=== PATIENT | male | born 1990 | race African-American/Black ===

== ENCOUNTER 2024-10-10 09:34 | Emergency (ER) | payer SELFPAY ==
--- NOTE | 2024-10-10 11:31 | RAD REPORT ---
EXAMINATION: XR Foot Left 3 View CLINICAL INDICATION: Male, 34 years old. [facility] MAIN swelling/pain to left great toe Bed Name: 20 TECHNIQUE: 3 view radiographs of the left foot were obtained. COMPARISON: No prior exam. FINDINGS: No evidence of fracture or dislocation. Normal alignment. Mild osseous remodeling at the fi rst metatarsophalangeal articulation. Bone lesion. Soft tissues are unremarkable. No soft tissue swelling. No significant degenerative changes. IMPRESSION: No acute osseous abnormalities. Mild osseous remodeling, may represent early osteoarthritic changes a t the first metatarsophalangeal articulation.
--- NOTE | 2024-10-10 11:43 | EDPHYS ---
Physician Documentation [facility] Name: Toby Espitia Age: 34 yrs Sex: Male : 1990 Arrival Date: 10/10/2024 Time: 09:34 Bed 20 Private MD: ED Physician Jabari Gonzalez HPI: 10/10 10:39 This 34 yrs old Black Male presents to ER via Ambulatory with complaints of Toe Injury. rn 10:39 The patient presents with an injury, pain. The complaints affect the left foot. Onset: rn The symptoms/episode began/occurred 3 day(s) ago. Modifying factors: The symptoms are alleviated by Changing shoes the symptoms are aggravated by weight bearing, wearing shoes. Severity of symptoms: At their worst the symptoms were mild, in the emergency department the symptoms are unchanged. The patient has not experienced similar symptoms in the past. Patient reports recently switched to new steel toed boots, has been working 12-hour shifts and feels like his left great toe has been putting pressure against the toe. Feels better when he slides his foot back in his shoe and when he changes out of his shoes. Yesterday noticed bruising to the distal left toe.. Historical: - Allergies: 10:12 Morphine; ss - PMHx: 10:12 Diabetes mellitus; ss - PSHx: 10:12 L leg; ss - Immunization history:: Client reports having NOT received the Covid vaccine. - Infectious Disease History:: Denies. - Social history:: Smoking status: Patient denies any tobacco usage or history of. - Family history:: not pertinent. - Hospitalizations: : No recent hospitalization is reported. ROS: 10:57 MS/extremity: Positive for ecchymosis, pain, swelling, rn Exam: 10:57 Constitutional: This is a well developed, well nourished patient who is awake, alert, rn and in no acute distress. Cardiovascular: Regular rate and rhythm. No pulse deficits. MS/ Extremity: Pulses equal, no cyanosis. Neurovascular intact. Full, normal range of motion. Mild swelling of the distal half of the left great toe with ecchymosis. No evidence of fluctuance or paronychia. No purulence. No open wounds. No foul smell. No signs of gangrene. Vital Signs: 10:09 BP 145 / 87; Pulse 82; Resp 16; Temp 98.6; Pulse Ox 99% on R/A; Weight 108.86 kg; ss Height 6 ft. 0 in. ; Pain 0/10; 12:22 BP 138 / 78; Pulse 80; Resp 15; Pulse Ox 98% ; ko1 10:09 Body Mass Index 32.55 (108.86 kg, 182.88 cm) ss 10:09 Pain Scale: Adult ss MDM: 09:51 Medical Screening Exam initiated rn 11:41 Differential diagnosis: fracture, sprain, cellulitis, Swelling secondary to steel toed rn boots. Data reviewed: vital signs, nurses notes, radiologic studies, plain films, and as a result, I will discharge patient. Counseling: I had a detailed discussion with the patient and/or guardian regarding the historical points, exam findings, and any diagnostic results supporting the discharge/admit diagnosis, radiology results, the need for outpatient follow up, to return to the emergency department if symptoms worsen or persist or if there are any questions or concerns that arise at home. Special discussion: I discussed with the patient/guardian in detail that at this point there is no indication for admission to the hospital. It is understood, however, that if the symptoms persist or worsen the patient needs to return immediately for re-evaluation. Based on the history and exam findings, there is no indication for further emergent testing or inpatient evaluation. I discussed with the patient/guardian the need to see the collection specialist for further evaluation of the symptoms. 10/10 10:40 Order name: XRAY Foot LEFT 3 View; Complete Time: 11:37 rn Administered Medications: No medications were administered Disposition Summary: 10/10/24 11:42 Discharge Ordered Notes: Location: Home rn Problem: new rn Symptoms: have improved rn Condition: Stable rn Diagnosis - Contusion of right great toe without damage to nail, initial encounter rn Followup: rn - With: Private Physician - When: As needed - Reason: Recheck today's complaints, Re-evaluation by your physician Discharge Instructions: - Discharge Summary Sheet rn - Foot Contusion rn Forms: - Medication Reconciliation Form rn - Antibiotic learning disabilities resource teacher - Prescription Opioid Use rn - Patient Portal Instructions rn - Leadership Thank You Letter rn - Work release form ko1 Prescriptions: - Humalog U-100 Insulin 100 unit/mL Subcutaneous solution - inject 1 unit SUBCUTANEOUS route Use as Directed As needed Administer according rn to sliding scale as needed.; 1 packet; Refills: 0, Product Selection Permitted - Bactrim DS 800-160 mg Oral Tablet - take 1 tablet ORAL route every 12 hours for 10 days; 20 tablet; Refills: 0, rn Product Selection Permitted Signatures: Dispatcher [employer] Jabari Garcia MD MD rn Blanchard, Shelby, RN RN ss Corrections: (The following items were deleted from the chart) 10:41 10:41 Foot Left 3 View+RAD.RAD.BRZ ordered. BROCK GUTIÉRREZ
--- NOTE | 2024-10-10 11:43 | ER ---
Nurse's Notes [facility] Name: Toby Espitia Age: 34 yrs Sex: Male : 1990 Arrival Date: 10/10/2024 Time: 09:34 Bed 20 Private MD: Diagnosis: Contusion of right great toe without damage to nail, initial encounter Presentation: 10/10 10:09 Chief complaint: Chief complaint: Patient states: Bruising to L 1st toe that patient ss noticed yesterday. Coronavirus screen: Client denies travel out of the [place] in the last 14 days. Ebola Screen: Patient denies exposure to infectious person. Patient denies travel to an Ebola-affected area in the 21 days before illness onset. Initial Sepsis Screen: Does the patient meet any 2 criteria? No. Patient's initial sepsis screen is negative. Does the patient have a suspected source of infection? No. Patient's initial sepsis screen is negative. Risk Assessment: Do you want to hurt yourself or someone else? Patient reports no desire to harm self or others. Onset of symptoms was October 09, 2024. 10:09 Method Of Arrival: Ambulatory ss 10:09 Acuity: TIFFANY 3 ss Historical: - Allergies: 10:12 Morphine; ss - PMHx: 10:12 Diabetes mellitus; ss - PSHx: 10:12 L leg; ss - Immunization history:: Client reports having NOT received the Covid vaccine. - Infectious Disease History:: Denies. - Social history:: Smoking status: Patient denies any tobacco usage or history of. - Family history:: not pertinent. - Hospitalizations: : No recent hospitalization is reported. Screenin:[address] [facility] ED Fall Risk Assessment (Adult) History of falling in the last 3 months, ko1 including since admission No falls in past 3 months (0 pts) Confusion or Disorientation No (0 pts) Intoxicated or Sedated No (0 pts) Impaired Gait No (0 pts) Mobility Assist Device Used No (0 pt) Altered Elimination No (0 pt) Score/Fall Risk Level 0 - 2 = Low Risk Oriented to surroundings, Maintained a safe environment, Educated pt \T\ family on fall prevention, incl call for assistance when getting out of bed, Assessed \T\ reinforced patient's understanding of fall precautions, Hourly rounding (assess needs \T\ fall precautionary measures) done. Abuse screen: Denies threats or abuse. Denies injuries from another. Nutritional screening: No deficits noted. Tuberculosis screening: No symptoms or risk factors identified. Assessment: 10:29 General: Appears in no apparent distress. Behavior is calm, cooperative, appropriate ko1 for age. Pain: Complains of pain in left great toe. Neuro: No deficits noted. Cardiovascular: No deficits noted. Respiratory: No deficits noted. GI: No deficits noted. No signs and/or symptoms were reported involving the gastrointestinal system. : No deficits noted. No signs and/or symptoms were reported regarding the genitourinary system. EENT: No deficits noted. No signs and/or symptoms were reported regarding the EENT system. Derm: No deficits noted. No signs and/or symptoms reported regarding the dermatologic system. Musculoskeletal: No deficits noted. No signs and/or symptoms reported regarding the musculoskeletal system. Vital Signs: 10:09 BP 145 / 87; Pulse 82; Resp 16; Temp 98.6; Pulse Ox 99% on R/A; Weight 108.86 kg; ss Height 6 ft. 0 in. ; Pain 0/10; 12:22 BP 138 / 78; Pulse 80; Resp 15; Pulse Ox 98% ; ko1 10:09 Body Mass Index 32.55 (108.86 kg, 182.88 cm) ss 10:09 Pain Scale: Adult ss ED Course: 09:39 Patient arrived in ED. sj2 09:51 Jabari Gonzalez MD is Attending Physician. rn 10:12 Triage completed. ss 10:12 Arm band placed on right wrist. ss 10:13 Randee Martins, RN is Primary Nurse. ko1 10:29 Patient has correct armband on for positive identification. Allergy band placed. Bed in ko1 low position. Call light in reach. Side rails up X2. Provided Education on: call light. Pulse ox on. NIBP on. Door closed. Noise minimized. Lights dimmed. Warm blanket given. Pillow given. 10:29 No provider procedures requiring assistance completed. ko1 11:01 XRAY Foot LEFT 3 View In Process Unspecified. EDMS 12:22 Patient did not have IV access during this emergency room visit. ko1 Administered Medications: No medications were administered Medication: :29 VIS not applicable for this client. ko1 Outcome: 11:42 Discharge ordered by . rn 12:22 Discharged to home ambulatory, koGurmeet 12:22 Condition: stable 12:22 Discharge instructions given to patient, Instructed on discharge instructions, follow up and referral plans. medication usage, Demonstrated understanding of instructions, follow-up care, medications, Prescriptions given X 2, 12:37 Patient left the ED. ko1 Signatures: Dispatcher [employer] EDMS Jabari Gonzalez MD MD rn Blanchard, Shelby, RN RN ss Oliver, Kathy, RN RN ko1 Ariela Vega
[2024-10-10 12:41] VITALS: TEMP 98.6
[2024-10-10 12:43] VITALS: BP 138/78; O2SAT 98
== END 2024-10-10 12:37 | disposition home or self-care (01) ==
LOC: ER 09:34
DX: S90.112A Contusion of left great toe without damage to nail, initial encounter (principal)
CPT/HCPCS: 99283

== ENCOUNTER 2024-11-25 05:12 | Emergency (ER) | payer SELFPAY ==
--- NOTE | 2024-11-25 05:26 | EDPHYS ---
Physician Documentation [facility] Name: Toby Espitia Age: 34 yrs Sex: Male : 1990 Arrival Date: 11/25/2024 Time: 05:12 Bed 6 Private MD: ED Physician Andreas Espinoza HPI: 11/25 05:23 This 34 yrs old Black Male presents to ER via Unassigned with complaints of Abscess, sp3 Drainage From Ear, Ear Pain. 05:23 34-year-old male with type 1 diabetes presents with left ear/ear canal abscess that has sp3 "popped" with mild drainage. No other symptoms including fever, dental pain, facial pain or swelling, neck pain, submandibular pain, shortness of breath, chest pain or any other signs or symptoms on ROS at this time. Patient has had this in the past.. Historical: - Allergies: 05:25 Morphine; lg3 05:25 SHELLFISH; lg3 - Home Meds: 05:25 Insulin: Regular Sub-Q [Active]; lg3 - PMHx: 05:25 diabetes mellitus; lg3 - PSHx: 05:25 L leg; lg3 - Immunization history:: Adult Immunizations up to date. - Infectious Disease History:: Denies. - Social history:: Smoking status: Patient denies any tobacco usage or history of. Patient/guardian denies using alcohol, street drugs. ROS: 05:23 Constitutional: Negative for fever, chills, and weight loss, Eyes: Negative for injury, sp3 pain, redness, and discharge, ENT: Negative for injury, pain, and discharge, Neck: Negative for injury, pain, and swelling, Cardiovascular: Negative for chest pain, palpitations, and edema, Respiratory: Negative for shortness of breath, cough, wheezing, and pleuritic chest pain, Abdomen/GI: Negative for abdominal pain, nausea, vomiting, diarrhea, and constipation, Back: Negative for injury and pain, MS/Extremity: Negative for injury and deformity, Neuro: Negative for headache, weakness, numbness, tingling, and seizure, Psych: Negative for depression, anxiety, suicide ideation, homicidal ideation, and hallucinations, 05:23 All other systems are negative, Exam: 05:24 Constitutional: This is a well developed, well nourished patient who is awake, alert, sp3 and in no acute distress. Head/Face: Normocephalic, atraumatic. Eyes: Pupils equal round and reactive to light, extra-ocular motions intact. Lids and lashes normal. Conjunctiva and sclera are non-icteric and not injected. Cornea within normal limits. Periorbital areas with no swelling, redness, or edema. Neck: Trachea midline, no thyromegaly or masses palpated, and no cervical lymphadenopathy. Supple, full range of motion without nuchal rigidity, or vertebral point tenderness. No Meningismus. Chest/axilla: Normal chest wall appearance and motion. Nontender with no deformity. No lesions are appreciated. Cardiovascular: Regular rate and rhythm with a normal S1 and S2. No gallops, murmurs, or rubs. Normal PMI, no JVD. No pulse deficits. Respiratory: Lungs have equal breath sounds bilaterally, clear to auscultation and percussion. No rales, rhonchi or wheezes noted. No increased work of breathing, no retractions or nasal flaring. 05:24 ENT: Draining small abscess in the external auditory canal without TM involvement. No pinna involvement, cauliflower ear or any other abnormalities.. Vital Signs: 05:23 BP 147 / 89; Pulse 71; Resp 16 S; Temp 97.1(O); Pulse Ox 99% on R/A; Weight 111.13 kg lg3 (R); Height 6 ft. 0 in. (R); Pain 0/10; 05:23 Body Mass Index 33.23 (111.13 kg, 182.88 cm) lg3 05:23 Pain Scale: Adult lg3 MDM: 05:17 Medical Screening Exam initiated sp3 05:24 Data reviewed: vital signs, nurses notes. ED course: Abscess in ear canal without other sp3 complication. Will place on Augmentin and have patient follow-up with ENT. Patient states he has had abscess in the same spot in the past. And med/tele suspicious of sepsis, shock, or any other critical process, cartilage or other parts of the ear involvement, middle ear involvement or any other critical process.. Administered Medications: No medications were administered Disposition Summary: 11/25/24 05:26 Discharge Ordered Notes: Location: Home sp3 Condition: Stable sp3 Diagnosis - Cutaneous abscess sp3 Followup: sp3 - With: Chelsi Singer MD - When: Upon discharge from the Emergency Department - Reason: Recheck today's complaints Discharge Instructions: - Discharge Summary Sheet sp3 - Skin Abscess sp3 Forms: - Work release form lg3 - Medication Reconciliation Form sp3 - Antibiotic Education sp3 - Prescription Opioid Use sp3 - Patient Portal Instructions sp3 - Leadership Thank You Letter sp3 Prescriptions: - Augmentin 875-125 mg Oral Tablet - take 1 tablet ORAL route every 12 hours for 10 days; 20 tablet; Refills: 0, sp3 Product Selection Permitted Signatures: Aisha Ferraro RN RN lg3 Andreas Espinoza MD MD sp3
--- NOTE | 2024-11-25 05:26 | ER ---
Nurse's Notes [facility] Name: Toby Espitia Age: 34 yrs Sex: Male : 1990 Arrival Date: 11/25/2024 Time: 05:12 Bed 6 Private MD: Diagnosis: Cutaneous abscess Presentation: 11/25 05:23 Chief complaint: Patient states: bump in left ear X3 months with intermittent drainage. lg3 new drainage this morning. denies pain. Coronavirus screen: Client denies travel out of the [place] in the last 14 days. At this time, the client does not indicate any symptoms associated with coronavirus-19. Ebola Screen: No symptoms or risks identified at this time. Initial Sepsis Screen: Does the patient meet any 2 criteria? No. Patient's initial sepsis screen is negative. Does the patient have a suspected source of infection? No. Patient's initial sepsis screen is negative. Risk Assessment: Do you want to hurt yourself or someone else? Patient reports no desire to harm self or others. Onset of symptoms is unknown. 05:23 Method Of Arrival: Ambulatory lg3 05:23 Acuity: TIFFANY 5 lg3 Triage Assessment: 05:25 General: Appears in no apparent distress. comfortable, Behavior is calm, cooperative. lg3 Pain: Denies pain. EENT: Ear canal w/ drainage noted from left ear. Neuro: No deficits noted. [place] Agitation-Sedation Scale (RASS): 0 - Alert and Calm Level of Consciousness is awake, alert, obeys commands, Oriented to person, place, time, situation. Cardiovascular: No deficits noted. Denies chest pain, shortness of breath, Capillary refill < 3 seconds Clubbing of nail beds is absent JVD is absent Patient's skin is warm and dry. Respiratory: No deficits noted. Airway is patent Respiratory effort is even, unlabored, Respiratory pattern is regular, symmetrical. GI: No deficits noted. No signs and/or symptoms were reported involving the gastrointestinal system. : No signs and/or symptoms were reported regarding the genitourinary system. Derm: Skin is intact, is healthy with good turgor, Skin is dry, Skin is normal, Skin temperature is warm Abscess located on left ear. Musculoskeletal: No deficits noted. No signs and/or symptoms reported regarding the musculoskeletal system. Circulation, motion, and sensation intact. Range of motion: intact in all extremities. Historical: - Allergies: 05:25 Morphine; lg3 05:25 SHELLFISH; lg3 - Home Meds: 05:25 Insulin: Regular Sub-Q [Active]; lg3 - PMHx: 05:25 diabetes mellitus; lg3 - PSHx: 05:25 L leg; lg3 - Immunization history:: Adult Immunizations up to date. - Infectious Disease History:: Denies. - Social history:: Smoking status: Patient denies any tobacco usage or history of. Patient/guardian denies using alcohol, street drugs. Screenin:27 [facility] ED Fall Risk Assessment (Adult) History of falling in the last 3 months, lg3 including since admission No falls in past 3 months (0 pts) Confusion or Disorientation No (0 pts) Intoxicated or Sedated No (0 pts) Impaired Gait No (0 pts) Mobility Assist Device Used No (0 pt) Altered Elimination No (0 pt) Score/Fall Risk Level 0 - 2 = Low Risk Oriented to surroundings, Maintained a safe environment, Educated pt \T\ family on fall prevention, incl call for assistance when getting out of bed, Assessed \T\ reinforced patient's understanding of fall precautions. Abuse screen: Denies threats or abuse. Denies injuries from another. Nutritional screening: No deficits noted. Tuberculosis screening: No symptoms or risk factors identified. Assessment: 05:27 General: see triage assessment. lg3 Vital Signs: 05:23 BP 147 / 89; Pulse 71; Resp 16 S; Temp 97.1(O); Pulse Ox 99% on R/A; Weight 111.13 kg lg3 (R); Height 6 ft. 0 in. (R); Pain 0/10; 05:23 Body Mass Index 33.23 (111.13 kg, 182.88 cm) lg3 05:23 Pain Scale: Adult lg3 ED Course: 05:16 Patient arrived in ED. jj6 05:17 Andreas Espinoza MD is Attending Physician. sp3 05:25 Triage completed. lg3 05:25 Arm band placed on right wrist. lg3 05:26 Chelsi Singer MD is Referral Physician. sp3 05:27 Patient has correct armband on for positive identification. Bed in low position. lg3 05:27 No provider procedures requiring assistance completed. Patient did not have IV access lg3 during this emergency room visit. Administered Medications: No medications were administered Medication: 05:27 VIS not applicable for this client. lg3 Outcome: 05:26 Discharge ordered by . sp3 05:27 Discharged to home ambulatory, lg3 05:27 Condition: stable 05:27 Discharge instructions given to patient, Instructed on discharge instructions, follow up and referral plans. medication usage, Demonstrated understanding of instructions, follow-up care, medications, Prescriptions given X 1, 05:31 Patient left the ED. lg3 Signatures: Aisha Ferraro RN RN lg3 Andreas Espinoza MD MD sp3 Savannah Mendoza [email or web address] Corrections: (The following items were deleted from the chart) 05:25 05:23 Chief complaint: Patient states: bump in left ear with intermittent drainage. new lg3 drainage this morning. denies pain lg3
[2024-11-25 05:37] VITALS: BP 147/89; TEMP 97.1; O2SAT 99
== END 2024-11-25 05:31 | disposition home or self-care (01) ==
LOC: ER 05:12
DX: H60.02 Abscess of left external ear (principal); E11.9 Type 2 diabetes mellitus without complications; Z79.4 Long term (current) use of insulin
CPT/HCPCS: 99283

== ENCOUNTER 2024-12-28 07:27 | Emergency (ER) | payer OTHER, SELFPAY ==
[2024-12-28] MEDS ORDERED: NA CHLORIDE 0.9% 250 ML ONE (08:12)
[2024-12-28] MEDS ORDERED: VANCOMYCIN 1 GM/VIAL ONE (08:12)
[2024-12-28 08:25] LABS: Absolute Basophils 0.1 K/uL (0-0.5); Absolute Eosinophils 0.3 K/uL (0-0.5); Absolute Lymphocytes (CBC) 1.9 K/uL (0.7-4.9); Absolute Monocytes 0.8 K/uL (0.1-1.3); Absolute Neutrophil 6.8 K/uL (1.8-8.0); Basophils % 1.2 % (0-1.3); Eosinophils % 2.8 % (0-4.4); Hematocrit 42.5 % (39.6-49.0); Hemoglobin 14.4 g/dL (13.6-17.9); Lymphocytes % 19.3 % (15.3-44.8); MCH 29.7 pg (27.0-35.0); MCHC 33.8 g/dL (32.0-36.0); MCV 87.6 fL (80-100); MPV 7.8 fL (7.6-11.3); Monocytes % 8.5 % (3.3-12.3); Neutrophils % 68.2 % (41.7-73.7); Nucleated Red Blood Cells % 0.1 % (0-0); Platelets 282 thou/uL (152-406); RBC Red Blood Cell Count 4.85 M/uL (4.33-5.43); Red Cell Distribution Width 13.1 % (12.1-15.2)
[2024-12-28 08:37] LABS: Albumin 4.3 g/dL (3.4-5.0); Albumin/Globulin Ratio 1.2 (1.1-1.8); Anion Gap 8.5 mEq/L (5.0-15.0); Bilirubin Direct 0.2 mg/dL (0-0.2); Bilirubin Indirect, Calculated 0.3 mg/dL (0.2-0.8); Bilirubin Total 0.5 mg/dL (0.2-1.0); Globulin 3.6 g/dL (2.3-3.5); Magnesium 1.8 mg/dL (1.6-2.4); Potassium 3.5 mEq/L (3.5-5.1); Protein, Total 7.9 g/dL (6.4-8.2)
--- NOTE | 2024-12-28 08:45 | RAD REPORT ---
EXAMINATION: XR Foot Left 3 View CLINICAL INDICATION: Male, 34 years old. [facility] MAIN great toe -- assess for osteo Bed Name: 7 TECHNIQUE: 3 view radiographs of the left foot were obtained. COMPARISON: 10/10/2024. FINDINGS: No evidence of fracture or dislocation. Normal alignment. No evidence of arthropathy or oth er focal bone lesion. Soft tissue irregularity along the lateral distal phalanx great toe with swelling, without underlying junction. Mild degenerative changes at the first metatarsophalangeal art iculation and midfoot articulations, stable. IMPRESSION: No acute osseous abnormalities with soft tissue swelling and irregularity along the phalanx great toe . There is persistent clinical concern for osteomyelitis, additional evaluation by MRI with provide improved sensitivity.
--- NOTE | 2024-12-28 09:24 | ER ---
Nurse's Notes [facility] Name: Toby Espitia Age: 34 yrs Sex: Male : 1990 Arrival Date: 12/28/2024 Time: 07:27 Bed 7 Private MD: Diagnosis: Cellulitis, diabetic foot Presentation: 12/28 07:56 Chief complaint: Left great toe wound x months, getting worse. Coronavirus screen: At this time, the client does not indicate any symptoms associated with coronavirus-19. Ebola Screen: No symptoms or risks identified at this time. Initial Sepsis Screen: Does the patient meet any 2 criteria? No. Patient's initial sepsis screen is negative. Does the patient have a suspected source of infection? No. Patient's initial sepsis screen is negative. Risk Assessment: Do you want to hurt yourself or someone else? Patient reports no desire to harm self or others. Onset of symptoms is unknown. 07:56 Method Of Arrival: Ambulatory hb 07:56 Acuity: TIFFANY 3 hb Historical: - Allergies: 07:58 Morphine; hb 07:58 SHELLFISH; hb - Home Meds: 07:58 Insulin: Regular Sub-Q [Active]; hb - PMHx: 07:58 diabetes mellitus; hb - PSHx: 07:58 L leg; hb - Immunization history:: Adult Immunizations up to date. - Infectious Disease History:: Denies. - Social history:: Smoking status: Patient reports the use of cigarette tobacco products, denies chronic smoking, but will smoke occasionally, cigars. Screenin:37 [facility] ED Fall Risk Assessment (Adult) History of falling in the last 3 months, iw including since admission No falls in past 3 months (0 pts) Confusion or Disorientation No (0 pts) Intoxicated or Sedated No (0 pts) Impaired Gait No (0 pts) Mobility Assist Device Used No (0 pt) Altered Elimination No (0 pt) Score/Fall Risk Level 0 - 2 = Low Risk Oriented to surroundings, Maintained a safe environment. Abuse screen: Denies threats or abuse. Denies injuries from another. Nutritional screening: No deficits noted. Tuberculosis screening: No symptoms or risk factors identified. Assessment: 08:36 General: Appears in no apparent distress. Behavior is calm, cooperative. Pain: Denies iw pain. Neuro: Level of Consciousness is awake, alert, obeys commands, Oriented to person, place, time, situation, Moves all extremities. Cardiovascular: Patient's skin is warm and dry. Respiratory: Respiratory effort is even, unlabored, Respiratory pattern is regular. Derm: Wound noted Decubitus located on left great toe approximately is unstageable. eschar present. Musculoskeletal: Range of motion: intact in all extremities. 08:55 Reassessment: Patient appears in no apparent distress at this time. Patient and/or iw family updated on plan of care and expected duration. Pain level reassessed. Patient is alert, oriented x 3, equal unlabored respirations, skin warm/dry/pink. Vital Signs: 07:56 BP 170 / 103; Pulse 109; Resp 17; Temp 98.8(O); Pulse Ox 100% on R/A; Weight 108.86 kg; hb Height 6 ft. 0 in. ; Pain 0/10; 08:55 BP 164 / 92; Pulse 91; Resp 16; Pulse Ox 97% on R/A; Pain 0/10; iw 10:08 BP 158 / 86; Pulse 74; Resp 16; Temp 98; Pulse Ox 100% on R/A; iw 07:56 Body Mass Index 32.55 (108.86 kg, 182.88 cm) hb 07:56 Pain Scale: Adult hb 08:55 Pain Scale: Adult iw ED Course: 07:32 Patient arrived in ED. sj2 07:42 Andreas Espinoza MD is Attending Physician. sp3 07:50 Edson Panchal, RN is Primary Nurse. bp 07:57 Triage completed. hb 07:58 Arm band placed on. hb 08:15 Inserted saline lock: 20 gauge in right antecubital area, using aseptic technique. iw Blood collected. Flushed with 10 mL NS. 08:29 Second set of blood cultures drawn by me. iw 08:35 Inserted saline lock: 22 gauge in left antecubital area, using aseptic technique. Blood iw collected. Flushed with 10 mL NS. 08:37 Foot Left 3 View XRAY In Process Unspecified. EDMS 09:23 Tam Dominguez MD is Referral Physician. sp3 10:08 Patient has correct armband on for positive identification. Provided Education on: . iw 10:08 No provider procedures requiring assistance completed. IV discontinued, intact, iw bleeding controlled, No redness/swelling at site. Pressure dressing applied. Administered Medications: 07:49 CANCELLED (error): ns 0.9% 1000 ml IV at 1000 ml once; to be given as a bolus over 60 sp3 minutes 08:43 Drug: vancoMYCIN IVPB 1 grams IVPB once over 2 hrs Route: IVPB; Infused Over: 2 hrs; iw Site: left antecubital; 09:00 Follow up: IV Status: Completed infusion iw Medication: 10:08 VIS not applicable for this client. iw Outcome: :23 Discharge ordered by MD. mccallum 10:08 Discharged to home ambulatory, iw 10: Condition: good 10:08 Discharge instructions given to patient, Instructed on discharge instructions, follow up and referral plans. medication usage, Demonstrated understanding of instructions, follow-up care, medications, Prescriptions given X 3, 10:09 Patient left the ED. iw Signatures: Dispatcher [employer] EDMakeda Jones RN RN iw Katia Martinez RN RN Edson Panchal RN RN bp Patel, Setul, MD MD sp3 Ariela Vega
--- NOTE | 2024-12-28 09:24 | EDPHYS ---
Physician Documentation [facility] Name: Toby Espitia Age: 34 yrs Sex: Male : 1990 Arrival Date: 12/28/2024 Time: 07:27 Bed 7 Private MD: ED Physician Andreas Espinoza HPI: 12/28 07:56 This 34 yrs old Black Male presents to ER via Unassigned with complaints of Foot sp3 Problem. 07:56 34-year-old male with history of type 1 diabetes on insulin presents with left sp3 foot/great toe pain, swelling and blackened skin. Patient states that he was seen here over a month ago for similar symptoms and received antibiotics and went home where he was getting better but now is getting worse again. He attributes his symptoms to being in steel toed boots. He denies any other symptoms including fever, proximal leg pain, lymphadenopathy, chest pain, shortness of breath or any other signs or symptoms on ROS at this time.. Historical: - Allergies: 07:58 Morphine; hb 07:58 SHELLFISH; hb - Home Meds: 07:58 Insulin: Regular Sub-Q [Active]; hb - PMHx: 07:58 diabetes mellitus; hb - PSHx: 07:58 L leg; hb - Immunization history:: Adult Immunizations up to date. - Infectious Disease History:: Denies. - Social history:: Smoking status: Patient reports the use of cigarette tobacco products, denies chronic smoking, but will smoke occasionally, cigars. ROS: 07:57 Constitutional: Negative for fever, chills, and weight loss, Eyes: Negative for injury, sp3 pain, redness, and discharge, ENT: Negative for injury, pain, and discharge, Neck: Negative for injury, pain, and swelling, Cardiovascular: Negative for chest pain, palpitations, and edema, Respiratory: Negative for shortness of breath, cough, wheezing, and pleuritic chest pain, Abdomen/GI: Negative for abdominal pain, nausea, vomiting, diarrhea, and constipation, Back: Negative for injury and pain, Neuro: Negative for headache, weakness, numbness, tingling, and seizure, Psych: Negative for depression, anxiety, suicide ideation, homicidal ideation, and hallucinations, Allergy/Immunology: Negative for hives, rash, and allergies, Endocrine: Negative for neck swelling, polydipsia, polyuria, polyphagia, and marked weight changes, 07:57 All other systems are negative, Exam: 07:57 Constitutional: This is a well developed, well nourished patient who is awake, alert, sp3 and in no acute distress. Head/Face: Normocephalic, atraumatic. Eyes: Pupils equal round and reactive to light, extra-ocular motions intact. Lids and lashes normal. Conjunctiva and sclera are non-icteric and not injected. Cornea within normal limits. Periorbital areas with no swelling, redness, or edema. Neck: Trachea midline, no thyromegaly or masses palpated, and no cervical lymphadenopathy. Supple, full range of motion without nuchal rigidity, or vertebral point tenderness. No Meningismus. Chest/axilla: Normal chest wall appearance and motion. Nontender with no deformity. No lesions are appreciated. Cardiovascular: Regular rate and rhythm with a normal S1 and S2. No gallops, murmurs, or rubs. Normal PMI, no JVD. No pulse deficits. Respiratory: Lungs have equal breath sounds bilaterally, clear to auscultation and percussion. No rales, rhonchi or wheezes noted. No increased work of breathing, no retractions or nasal flaring. Abdomen/GI: Soft, non-tender, with normal bowel sounds. No distension or tympany. No guarding or rebound. No evidence of tenderness throughout. Neuro: Awake and alert, GCS 15, oriented to person, place, time, and situation. Cranial nerves II-XII grossly intact. Motor strength 5/5 in all extremities. Sensory grossly intact. Cerebellar exam normal. Normal gait. Psych: Awake, alert, with orientation to person, place and time. Behavior, mood, and affect are within normal limits. 07:57 Musculoskeletal/extremity: Left great toe painful and blackened skin coupled with dry skin. Surrounding erythema noted.. Vital Signs: 07:56 BP 170 / 103; Pulse 109; Resp 17; Temp 98.8(O); Pulse Ox 100% on R/A; Weight 108.86 kg; hb Height 6 ft. 0 in. ; Pain 0/10; 08:55 BP 164 / 92; Pulse 91; Resp 16; Pulse Ox 97% on R/A; Pain 0/10; iw 10:08 BP 158 / 86; Pulse 74; Resp 16; Temp 98; Pulse Ox 100% on R/A; iw 07:56 Body Mass Index 32.55 (108.86 kg, 182.88 cm) hb 07:56 Pain Scale: Adult hb 08:55 Pain Scale: Adult iw MDM: 07:51 Medical Screening Exam initiated sp3 07:57 Data reviewed: vital signs, nurses notes, old medical records, lab test result(s), sp3 radiologic studies. ED course: 34-year-old male with type 1 diabetes now with toe pain nontraumatic. Consider cellulitis versus osteomyelitis versus other localized infection. Will obtain x-ray, labs and administer antibiotics. Disposition pending workup and patient course.. 09:22 ED course: No signs of osteo on x-ray and patient's labs are all within normal limits. sp3 Will place on antibiotics and have him follow-up with podiatry.. 12/28 07:48 Order name: Basic Metabolic Panel; Complete Time: 08:52 sp3 12/28 07:48 Order name: CBC with Diff; Complete Time: 08:52 sp3 12/28 07:48 Order name: Hepatic Function; Complete Time: 08:52 sp3 12/28 07:48 Order name: Magnesium; Complete Time: 08:52 sp3 12/28 07:56 Order name: Blood Culture Adult (2) sp3 12/28 07:56 Order name: Foot Left 3 View XRAY; Complete Time: 08:52 sp3 12/28 07:48 Order name: Labs collected and sent; Complete Time: 07:49 sp3 Administered Medications: 07:49 CANCELLED (error): ns 0.9% 1000 ml IV at 1000 ml once; to be given as a bolus over 60 sp3 minutes 08:43 Drug: vancoMYCIN IVPB 1 grams IVPB once over 2 hrs Route: IVPB; Infused Over: 2 hrs; iw Site: left antecubital; 09:00 Follow up: IV Status: Completed infusion iw Disposition Summary: 12/28/24 09:23 Discharge Ordered Notes: Location: Home sp3 Condition: Stable sp3 Diagnosis - Cellulitis, diabetic foot sp3 Followup: sp3 - With: Private Physician - When: Upon discharge from the Emergency Department - Reason: Continuance of care Followup: sp3 - With: Tma Dominguez MD - When: Upon discharge from the Emergency Department - Reason: Recheck today's complaints, Continuance of care Discharge Instructions: - Discharge Summary Sheet sp3 - Cellulitis, Adult sp3 Forms: - Medication Reconciliation Form sp3 - Antibiotic Education sp3 - Prescription Opioid Use sp3 - Patient Portal Instructions sp3 - Leadership Thank You Letter sp3 Prescriptions: - mupirocin 2 % Topical ointment - apply 1 application TOPICAL route 4 times per day; 2 Each; Refills: 0, Product sp3 Selection Permitted - Clindamycin HCl 300 mg Oral Capsule - take 1 capsule ORAL route every 6 hours for 10 days; 40 capsule; Refills: 0, sp3 Product Selection Permitted - Bactrim DS 800-160 mg Oral Tablet - take 1 tablet ORAL route every 12 hours for 7 days; 14 tablet; Refills: 0, sp3 Product Selection Permitted Signatures: Dispatcher [employer] EDMS Makeda Cook RN RN Katia Martinez RN RN Andreas Espinoza MD MD sp3 Corrections: (The following items were deleted from the chart) 07:48 07:48 BASIC METABOLIC PANEL+C.LAB.BRZ ordered. EDMS EDMS 07:48 07:48 CBC+H.LAB.BRZ ordered. EDMS EDMS 07:48 07:48 HEPATIC FUNCTION+C.LAB.BRZ ordered. EDMS EDMS 07:48 07:48 MAGNESIUM+C.LAB.BRZ ordered. EDMS EDMS 07:48 07:48 Test, Urine+UC.LAB.BRZ ordered. EDMS EDMS 07:48 07:48 Urinalysis+U.LAB.BRZ ordered. EDMS EDMS 07:49 07:48 EKG - Nurse/Tech ordered. sp3 sp3 07:49 07:48 IV Saline Lock ordered. sp3 sp3 07:49 07:48 Orthostatics ordered. sp3 sp3 07:49 07:48 NS 0.9% IV 1000 ml IV at 1000 ml once; to be given as a bolus over 60 minutes sp3 ordered. sp3 07:56 07:56 Foot Left 3 View+RAD.RAD.BRZ ordered. EDMS EDMS
[2024-12-28 10:38] VITALS: BP 158/86; TEMP 98; O2SAT 100
== END 2024-12-28 10:09 | disposition home or self-care (01) ==
LOC: ER 07:27
DX: L03.032 Cellulitis of left toe (principal); E10.621 Type 1 diabetes mellitus with foot ulcer; Z79.4 Long term (current) use of insulin; F17.290 Nicotine dependence, other tobacco product, uncomplicated
CPT/HCPCS: 87040 ×2; 85025; 80048; 36415; 83735; 80076; 73630; J3370; J7050; 96365; 99284

== ENCOUNTER 2025-01-30 10:33 | Emergency (ER) | payer OTHER ==
[2025-01-30] MEDS ORDERED: NA CHLORIDE 0.9% 1,000 ML ONE (10:52)
[2025-01-30] MEDS ORDERED: INSULIN REGULAR (HUMAN) 100 UNIT/ML ONE (11:03)
[2025-01-30 11:22] LABS: Absolute Basophils 0.1 K/uL (0-0.5); Absolute Eosinophils 0.2 K/uL (0-0.5); Absolute Lymphocytes (CBC) 1.7 K/uL (0.7-4.9); Absolute Monocytes 0.7 K/uL (0.1-1.3); Absolute Neutrophil 6.2 K/uL (1.8-8.0); Basophils % 0.8 % (0-1.3); Eosinophils % 2.5 % (0-4.4); Hematocrit 41.4 % (39.6-49.0); Hemoglobin 14.4 g/dL (13.6-17.9); Lymphocytes % 19.2 % (15.3-44.8); MCH 29.9 pg (27.0-35.0); MCHC 34.8 g/dL (32.0-36.0); MCV 85.7 fL (80-100); MPV 8.2 fL (7.6-11.3); Monocytes % 7.3 % (3.3-12.3); Neutrophils % 70.2 % (41.7-73.7); Nucleated Red Blood Cells % 0.1 % (0-0); Platelets 226 thou/uL (152-406); RBC Red Blood Cell Count 4.83 M/uL (4.33-5.43); Red Cell Distribution Width 12.9 % (12.1-15.2)
[2025-01-30 11:42] LABS: Anion Gap 11.2 mEq/L (5.0-15.0); Potassium 4.2 mEq/L (3.5-5.1)
--- NOTE | 2025-01-30 12:55 | ER ---
Nurse's Notes [facility] Name: Toby Espitia Age: 34 yrs Sex: Male : 1990 Arrival Date: 01/30/2025 Time: 10:33 Bed 4 Private MD: Diagnosis: Hyperglycemia, unspecified;Dehydration Presentation: 01/30 10:46 Chief complaint: Patient states: fatigue and nausea that began last night. Pt reports ss that one of his insulin vials broke yesterday and believes he is not feeling well because he hasn't been able to stay on his inulin regimen and he has worked 20 days in a row. Coronavirus screen: Client denies travel out of the [place] in the last 14 days. Ebola Screen: Patient denies exposure to infectious person. Patient denies travel to an Ebola-affected area in the 21 days before illness onset. Initial Sepsis Screen: Does the patient meet any 2 criteria? Does the patient have a suspected source of infection? No. Patient's initial sepsis screen is negative. Risk Assessment: Do you want to hurt yourself or someone else? Patient reports no desire to harm self or others. Onset of symptoms was January 29, 2025. 10:46 Method Of Arrival: Ambulatory ss 10:46 Acuity: TIFFANY 3 ss Historical: - Allergies: 10:48 Morphine; ss 10:48 SHELLFISH; ss - PMHx: 10:48 diabetes mellitus; ss - PSHx: 10:48 L leg; ss - Immunization history:: Adult Immunizations unknown. - Infectious Disease History:: Denies. - Family history:: not pertinent. - Hospitalizations: : No recent hospitalization is reported. - Social history:: Smoking status: Patient denies any tobacco usage or history of. Screenin:00 [facility] ED Fall Risk Assessment (Adult) History of falling in the last 3 months, jl7 including since admission No falls in past 3 months (0 pts) Confusion or Disorientation No (0 pts) Intoxicated or Sedated No (0 pts) Impaired Gait No (0 pts) Mobility Assist Device Used No (0 pt) Altered Elimination No (0 pt) Score/Fall Risk Level 0 - 2 = Low Risk Oriented to surroundings, Maintained a safe environment. Abuse screen: Denies threats or abuse. Denies injuries from another. Nutritional screening: No deficits noted. Tuberculosis screening: No symptoms or risk factors identified. Assessment: 11:00 General: Appears in no apparent distress. uncomfortable, Behavior is calm, cooperative, jl7 appropriate for age. Pain: Denies pain. Neuro: Level of Consciousness is awake, alert, obeys commands, Oriented to person, place, time, situation. Cardiovascular: Patient's skin is warm and dry. Respiratory: Airway is patent Respiratory effort is even, unlabored, Respiratory pattern is regular, symmetrical. GI: Abdomen is non-distended. Derm: Skin is pink, warm \T\ dry. Vital Signs: 10:46 Weight 113.4 kg; Height 6 ft. 0 in. ; Pain 0/10; ss 11:05 BP 144 / 90; Pulse 77; Resp 15; Temp 98; Pulse Ox 98% ; Pain 0/10; jl7 13:14 BP 137 / 85; Pulse 79; Resp 16; Temp 98.3; Pulse Ox 99% on R/A; Pain 0/10; dd2 10:46 Body Mass Index 33.91 (113.40 kg, 182.88 cm) ss 10:46 Pain Scale: Adult ss 11:05 Pain Scale: Adult jl7 13:14 Pain Scale: Adult dd2 ED Course: 10:38 Patient arrived in ED. cj3 10:39 Jabari Gonzalez MD is Attending Physician. rn 10:48 Triage completed. ss 10:48 Arm band placed on right wrist. ss 10:50 Danis Morley, STEFANI is Primary Nurse. jl7 11:00 Patient has correct armband on for positive identification. Provided Education on: use jl7 of call beltre. 11:00 Missed attempt(s): 20 gauge in right forearm. Bleeding controlled, band aid applied, jl7 catheter tip intact. 11:02 Missed attempt(s): 20 gauge in right antecubital area. Bleeding controlled, band aid jl7 applied, catheter tip intact. 11:09 Basic Metabolic Panel Sent. bc6 11:09 CBC with Diff Sent. bc6 11:09 Initial lab(s) drawn, by nj, sent to lab. Inserted saline lock: 20 gauge in left bc6 antecubital area, using aseptic technique. Blood collected. Flushed with 10 mL NS. 13:14 No provider procedures requiring assistance completed. IV discontinued, intact, dd2 bleeding controlled, No redness/swelling at site. Pressure dressing applied. Administered Medications: 11:10 Drug: NS 0.9% IV 1000 ml IV at 1000 ml once; to be given as a bolus over 60 minutes aa5 Route: IV; Rate: 1000 ml; Site: left antecubital; 12:10 Follow up: IV Status: Completed infusion dd2 11:10 Drug: Insulin Regular Human Sub-Q 10 units Sub-Q once {Co-Signature: jlCarlos (Danis Morley RN).} Route: Sub-Q; Site: left upper arm; 11:25 Follow up: Response: No adverse reaction dd2 Medication: 11:00 VIS not applicable for this client. jl7 Outcome: 12:54 Discharge ordered by . rn 13:14 Discharged to home ambulatory, dd2 13:14 Condition: improved 13:14 Discharge instructions given to patient, Instructed on discharge instructions, follow up and referral plans. medication usage, Demonstrated understanding of instructions, follow-up care, medications, Prescriptions given X 1, 13:17 Patient left the ED. dd2 Signatures: Jabari Gonzalez MD MD rn Calderon, Audri, RN RN aa5 Della Gonzalez, RN RN ss Danis Morley, RN RN jl7 Malissa Stoddard6 ALYSSA ROGEL RN RN dd2 Jasmyn Shaw 3 Danis Morley RN [email or web address] Corrections: (The following items were deleted from the chart) 11:06 11:02 Missed attempt(s): 20 gauge in right antecubital area. olga jl7
--- NOTE | 2025-01-30 12:55 | EDPHYS ---
Physician Documentation [facility] Name: Toby Espitia Age: 34 yrs Sex: Male : 1990 Arrival Date: 01/30/2025 Time: 10:33 Bed 4 Private MD: ED Physician Jabari Gonzalez HPI: 01/30 10:58 This 34 yrs old Black Male presents to ER via Ambulatory with complaints of High Blood rn Sugar, Nausea, Dizziness. 10:58 Onset: The symptoms/episode began/occurred last night. Associated signs and symptoms: rn Pertinent positives: polyuria. Current symptoms: In the emergency department the patient's symptoms are unchanged from the initial presentation. Patient reports accidentally dropped and broke his last insulin vial yesterday. Has not had insulin since yesterday. Takes Humalog and is on a sliding scale. Usually well-controlled. Glucose greater than 250 today and reports polyuria and polydipsia. Has been working 20 days in a row and is exhibiting fatigue but he is not sure due to elevated glucose or from work. No syncope. No fever or chills. Does not feel ill.. Historical: - Allergies: 10:48 Morphine; ss 10:48 SHELLFISH; ss - PMHx: 10:48 diabetes mellitus; ss - PSHx: 10:48 L leg; ss - Immunization history:: Adult Immunizations unknown. - Infectious Disease History:: Denies. - Family history:: not pertinent. - Hospitalizations: : No recent hospitalization is reported. - Social history:: Smoking status: Patient denies any tobacco usage or history of. ROS: 10:58 Constitutional: Negative for fever, chills, and weight loss, Cardiovascular: Negative rn for chest pain, palpitations, and edema, Respiratory: Negative for shortness of breath, cough, wheezing, and pleuritic chest pain, Abdomen/GI: Negative for abdominal pain, nausea, vomiting, diarrhea, and constipation, MS/Extremity: Negative for injury and deformity, Skin: Negative for injury, rash, and discoloration, Neuro: Negative for headache, numbness, tingling, and seizure, Endocrine: Positive for polyuria and polydipsia Exam: 11:01 Constitutional: This is a well developed, well nourished patient who is awake, alert, rn and in no acute distress. Ambulatory to room without assistance or difficulty Cardiovascular: Regular rate and rhythm. No pulse deficits. Respiratory: No increased work of breathing, no retractions or nasal flaring. Skin: Warm, dry MS/ Extremity: Pulses equal, no cyanosis. Neuro: Awake and alert, GCS 15 Vital Signs: 10:46 Weight 113.4 kg; Height 6 ft. 0 in. ; Pain 0/10; ss 11:05 BP 144 / 90; Pulse 77; Resp 15; Temp 98; Pulse Ox 98% ; Pain 0/10; jl7 13:14 BP 137 / 85; Pulse 79; Resp 16; Temp 98.3; Pulse Ox 99% on R/A; Pain 0/10; dd2 10:46 Body Mass Index 33.91 (113.40 kg, 182.88 cm) ss 10:46 Pain Scale: Adult ss 11:05 Pain Scale: Adult jl7 13:14 Pain Scale: Adult dd2 MDM: 10:39 Medical Screening Exam initiated rn 12:53 Differential diagnosis: DKA, hyperglycemia. Data reviewed: vital signs, nurses notes, sleeve turner test result(s), and as a result, I will discharge patient. Counseling: I had a detailed discussion with the patient and/or guardian regarding the historical points, exam findings, and any diagnostic results supporting the discharge/admit diagnosis, lab results, the need for outpatient follow up, to return to the emergency department if symptoms worsen or persist or if there are any questions or concerns that arise at home. Response to treatment: the patient's symptoms have markedly improved after treatment, and as a result, I will discharge patient. Special discussion: I discussed with the patient/guardian in detail that at this point there is no indication for admission to the hospital. It is understood, however, that if the symptoms persist or worsen the patient needs to return immediately for re-evaluation. ED course: No indication for admission at this time. No acidosis. Symptoms consistent with his hyperglycemia and will refill his Humalog prescription. Patient uses sliding scale and is comfortable managing his diabetes at home.. 01/30 10:48 Order name: CBC with Diff; Complete Time: 11:49 rn 01/30 10:48 Order name: Basic Metabolic Panel; Complete Time: 11:49 rn 01/30 11:02 Order name: Glucose, Ancillary Testing; Complete Time: :49 EDMS 01/30 12:22 Order name: Glucose, Ancillary Testing; Complete Time: 12:43 EDMS 01/30 10:48 Order name: IV Start; Complete Time: 11:09 rn 01/30 10:48 Order name: Glucose Level; Complete Time: 11:05 rn Administered Medications: 11:10 Drug: NS 0.9% IV 1000 ml IV at 1000 ml once; to be given as a bolus over 60 minutes aa5 Route: IV; Rate: 1000 ml; Site: left antecubital; 12:10 Follow up: IV Status: Completed infusion dd2 11:10 Drug: Insulin Regular Human Sub-Q 10 units Sub-Q once {Co-Signature: [email or web address] (Danis Morley RN).} Route: Sub-Q; Site: left upper arm; 11:25 Follow up: Response: No adverse reaction dd2 Disposition Summary: 01/30/25 12:54 Discharge Ordered Notes: Location: Home rn Problem: new rn Symptoms: have improved rn Condition: Stable rn Diagnosis - Hyperglycemia, unspecified rn - Dehydration rn Followup: rn - With: Private Physician - When: As needed - Reason: Recheck today's complaints, Re-evaluation by your physician Discharge Instructions: - Discharge Summary Sheet rn - Dehydration, Adult rn - Hyperglycemia rn - Blood Glucose Monitoring, Adult rn Forms: - Medication Reconciliation Form rn - Antibiotic review rn - Prescription Opioid Use rn - Patient Portal Instructions rn - Leadership Thank You Letter rn - Work release form dd2 Prescriptions: - Humalog U-100 Insulin 100 unit/mL Subcutaneous solution - inject 1 unit SUBCUTANEOUS route before meals As needed Administer rn subcutaneously according to sliding scale.; 3 Unspecified; Refills: 0, Product Selection Permitted Signatures: Dispatcher [employer] [facility] Jabari Gonzalez MD MD rn Calderon, Audri, RN RN aa5 Della Gonzalez RN RN ss Danis Morley, RN RN jl7 ALYSSA ROGEL RN dd2 Danis Morley RN jl7
[2025-01-30 13:43] VITALS: BP 137/85; TEMP 98.3; O2SAT 99
== END 2025-01-30 13:17 | disposition home or self-care (01) ==
LOC: ER 10:33
DX: E11.65 Type 2 diabetes mellitus with hyperglycemia (principal); Z79.4 Long term (current) use of insulin; E86.0 Dehydration
CPT/HCPCS: 85025; 80048; 36415; 82947 ×2; 96360; 96372; 99284; J1815; J7030

== ENCOUNTER 2025-06-27 08:35 | Emergency (ER) | payer OTHER ==
--- NOTE | 2025-06-27 09:01 | RAD REPORT ---
EXAMINATION: TWO VIEW CHEST XR CLINICAL INDICATION: COUGH TECHNIQUE: 2 views of the chest was performed. COMPARISON: No prior exam. FINDINGS: The lungs are well inflated and clear. The heart is upper limit of normal in size. No displaced fract ures evident. Small hiatal hernia. IMPRESSION: No acute or significant abnormalities.
[2025-06-27 09:17] LABS: Absolute Lymphocytes (CBC) 2.1 K/uL (0.7-4.9); Hematocrit 40.1 % (39.6-49.0); Hemoglobin 14.2 g/dL (13.6-17.9); MCH 30.2 pg (27.0-35.0); MCHC 35.4 g/dL (32.0-36.0); MCV 85.4 fL (80-100); MPV 8.2 fL (7.6-11.3); Nucleated RBC Absolute Count 0.0 (0-0); Nucleated Red Blood Cells % 0.0 % (0-0); RBC Red Blood Cell Count 4.69 M/uL (4.33-5.43); White Blood Count 9.80 thou/uL (4.3-10.9)
[2025-06-27 09:34] LABS: Influenza A Ag Negative; Influenza B Ag Negative; SARS-CoV-2 Antigen Rapid Res Negative (Negative)
[2025-06-27 09:39] LABS: ALT/SGPT 56.0 U/L (16-61); AST/SGOT 21.0 U/L (15-37); Albumin 3.5 g/dL (3.4-5.0); Albumin/Globulin Ratio 1.1 (1.1-1.8); Alkaline Phosphatase 141.0 U/L (45-117); Anion Gap 9.7 mEq/L (5.0-15.0); BUN Blood Urea Nitrogen 15.0 mg/dL (7-18); Globulin 3.2 g/dL (2.3-3.5); Glucose Level 251.0 mg/dL (74-106); Potassium 3.7 mEq/L (3.5-5.1); Troponin High Sensitivity 5.0 pg/mL (<58.9)
[2025-06-27] MEDS ORDERED: NA CHLORIDE 0.9% 1,000 ML ONE (10:18)
--- NOTE | 2025-06-27 11:59 | ER ---
Nurse's Notes [facility] Name: Toby Espitia Age: 35 yrs Sex: Male : 1990 Arrival Date: 06/27/2025 Time: 08:35 Bed 10 Private MD: Diagnosis: Weakness;Other malaise and fatigue;Insomnia;Type 2 diabetes mellitus with hyperglycemia Presentation: 06/27 09:00 Chief complaint: Patient states: tired, fatigue, has been working the past month iw nonstop , works shift work, also has headaches, no fever , started feeling bad yesterday. Coronavirus screen: At this time, the client does not indicate any symptoms associated with coronavirus-19. Ebola Screen: No symptoms or risks identified at this time. Risk Assessment: Do you want to hurt yourself or someone else? Patient reports no desire to harm self or others. 09:00 Method Of Arrival: Ambulatory iw 09:02 Initial Sepsis Screen: Does the patient meet any 2 criteria? No. Patient's initial iw sepsis screen is negative. Does the patient have a suspected source of infection? No. Patient's initial sepsis screen is negative. 09:02 Acuity: TIFFANY 3 iw Historical: - Allergies: 09:02 Morphine; iw 09:02 SHELLFISH; iw - PMHx: 09:02 diabetes mellitus; iw - PSHx: 09:02 L leg; iw - Immunization history:: Adult Immunizations not up to date. - Infectious Disease History:: Denies. - Social history:: Smoking status: Patient reports the use of cigarette tobacco products, cigars. Screenin:04 [facility] ED Fall Risk Assessment (Adult) History of falling in the last 3 months, iw including since admission No falls in past 3 months (0 pts) Confusion or Disorientation No (0 pts) Intoxicated or Sedated No (0 pts) Impaired Gait No (0 pts) Mobility Assist Device Used No (0 pt) Altered Elimination No (0 pt) Score/Fall Risk Level 0 - 2 = Low Risk Oriented to surroundings, Maintained a safe environment. Abuse screen: Denies threats or abuse. Nutritional screening: No deficits noted. Tuberculosis screening: No symptoms or risk factors identified. Assessment: 12:04 Reassessment: Patient appears in no apparent distress at this time. Patient and/or iw family updated on plan of care and expected duration. Pain level reassessed. Patient is alert, oriented x 3, equal unlabored respirations, skin warm/dry/pink. 12:05 Reassessment: Patient states feeling better. Patient states symptoms have improved. rg5 General: Appears in no apparent distress. comfortable. Vital Signs: 09:02 BP 151 / 95; Pulse 84; Resp 16; Pulse Ox 100% on R/A; Weight 108.86 kg; Height 6 ft. 0 iw in. ; 12:00 BP 145 / 89; Pulse 79; Resp 16; Pulse Ox 98% on R/A; iw 09:02 Body Mass Index 32.55 (108.86 kg, 182.88 cm) iw NIH Stroke Scale Scores: 11:54 NIHSS Score: 0 srini ED Course: 08:38 Patient arrived in ED. mr 08:42 Adonay Child MD is Attending Physician. srini 08:57 Chest Pa And Lat (2 Views) XRAY In Process Unspecified. EDMS 09:02 Triage completed. iw 09:02 Arm band placed on. iw 10:16 Makeda Cook, RN is Primary Nurse. iw 10:30 Initial lab(s) drawn, by co, sent to lab. Inserted saline lock: 20 gauge in right iw antecubital area, using aseptic technique. Blood collected. Flushed with 10 mL NS. 11:58 Galen Espinoza DO is Referral Physician. srini 12:04 No provider procedures requiring assistance completed. IV discontinued, intact, iw bleeding controlled, No redness/swelling at site. Pressure dressing applied. 12:05 Patient has correct armband on for positive identification. Provided Education on: . iw Administered Medications: 10:32 Drug: NS 0.9% IV 1000 ml IV at 1000 ml once; to be given as a bolus over 60 minutes iw Route: IV; Rate: 1000 ml; Site: right antecubital; 12:05 Follow up: IV Status: Completed infusion; IV Intake: 1000ml rg5 Intake: 12:05 IV: 1000ml; Total: 1000ml. rg5 Outcome: 11:59 Discharge ordered by . srini 12:05 Discharged to home ambulatory, rg5 12:05 Condition: stable 12:05 Discharge instructions given to patient, Instructed on discharge instructions, Demonstrated understanding of instructions, 12:09 Patient left the ED. rg5 NIH Stroke Scale - NIH Stroke Score Date: 06/27/2025 Time: 11:54 Total Score = 0 10. Dysarthria (speech clarity - read or repeat words) - 0(Normal) 11. Extinction and Inattention (visual/tactile/auditory/spatial/personal) - 0(No abnormality) 1a. Level of Consciousness (LOC) - 0(Alert) 1b. Level of Consciousness (LOC) (Month \T\ Age) - 0(Both) 1c. LOC Commands (Open \T\ Closes Eyes/Drafter Landscape) - 0(Both) 2. Best Gaze (Lateral Gaze Paresis) - 0(Normal) 3. Visual Field Loss - 0(No visual loss) 4. Facial Palsy - 0(Normal) 5a. Left Arm: Motor (10-second hold) - 0(No drift) 5b. Right Arm: Motor (10-second hold) - 0(No drift) 6a. Left Leg: Motor (5-second hold - always test supine) - 0(No drift) 6b. Right Leg: Motor (5-second hold - always test supine) - 0(No drift) 7. Limb Ataxia (finger/nose \T\ heel/[place] - test with eyes open) - 0(Absent) 8. Sensory Loss (pinprick arms/legs/face) - 0(Normal) 9. Best Language: Aphasia (description/naming/reading) - 0(No aphasia) Initials: srini Signatures: Dispatcher [employer] Adonay Zhu MD MD cha Rivera, [facility], [facility] mr Makeda Cook, RN Fernando Anthony RN RN rg5
--- NOTE | 2025-06-27 11:59 | EDPHYS ---
Physician Documentation [facility] Name: Toby Espitia Age: 35 yrs Sex: Male : 1990 Arrival Date: 06/27/2025 Time: 08:35 Bed 10 Private MD: ED Physician Adonay Child HPI: 06/27 11:53 This 35 yrs old Black Male presents to ER via Ambulatory with complaints of Fatigue. srini 11:53 WEAK, TIRED, WORKING EVERYDAY. Onset: The symptoms/episode began/occurred 2 day(s) ago. srini Severity of symptoms: At their worst the symptoms were mild in the emergency department the symptoms are unchanged. The patient has experienced similar episodes in the past, a few times. Historical: - Allergies: 09:02 Morphine; iw 09:02 SHELLFISH; iw - PMHx: 09:02 diabetes mellitus; iw - PSHx: 09:02 L leg; iw - Immunization history:: Adult Immunizations not up to date. - Infectious Disease History:: Denies. - Social history:: Smoking status: Patient reports the use of cigarette tobacco products, cigars. ROS: 11:54 Constitutional: Negative for fever, chills, and weight loss, Eyes: Negative for injury, srini pain, redness, and discharge, ENT: Negative for injury, pain, and discharge, Neck: Negative for injury, pain, and swelling, Cardiovascular: Negative for chest pain, palpitations, and edema, Respiratory: Negative for shortness of breath, cough, wheezing, and pleuritic chest pain, Abdomen/GI: Negative for abdominal pain, nausea, vomiting, diarrhea, and constipation, Back: Negative for injury and pain, : Negative for injury, bleeding, discharge, and swelling, MS/Extremity: Negative for injury and deformity, Skin: Negative for injury, rash, and discoloration, Psych: Negative for depression, anxiety, suicide ideation, homicidal ideation, and hallucinations, Allergy/Immunology: Negative for hives, rash, and allergies, Endocrine: Negative for neck swelling, polydipsia, polyuria, polyphagia, and marked weight changes, Hematologic/Lymphatic: Negative for swollen nodes, abnormal bleeding, and unusual bruising, 11:54 Neuro: Positive for weakness, Exam: 11:54 Constitutional: This is a well developed, well nourished patient who is awake, alert, srini and in no acute distress. Head/Face: Normocephalic, atraumatic. Eyes: Pupils equal round and reactive to light, extra-ocular motions intact. Lids and lashes normal. Conjunctiva and sclera are non-icteric and not injected. Cornea within normal limits. Periorbital areas with no swelling, redness, or edema. ENT: Nares patent. No nasal discharge, no septal abnormalities noted. Tympanic membranes are normal and external auditory canals are clear. Oropharynx with no redness, swelling, or masses, exudates, or evidence of obstruction, uvula midline. Mucous membranes moist. Neck: Trachea midline, no thyromegaly or masses palpated, and no cervical lymphadenopathy. Supple, full range of motion without nuchal rigidity, or vertebral point tenderness. No Meningismus. Chest/axilla: Normal chest wall appearance and motion. Nontender with no deformity. No lesions are appreciated. Cardiovascular: Regular rate and rhythm with a normal S1 and S2. No gallops, murmurs, or rubs. Normal PMI, no JVD. No pulse deficits. Respiratory: Lungs have equal breath sounds bilaterally, clear to auscultation and percussion. No rales, rhonchi or wheezes noted. No increased work of breathing, no retractions or nasal flaring. Abdomen/GI: Soft, non-tender, with normal bowel sounds. No distension or tympany. No guarding or rebound. No evidence of tenderness throughout. Back: No spinal tenderness. No costovertebral tenderness. Full range of motion. Male : Normal genitalia with no discharge or lesions. Skin: Warm, dry with normal turgor. Normal color with no rashes, no lesions, and no evidence of cellulitis. MS/ Extremity: Pulses equal, no cyanosis. Neurovascular intact. Full, normal range of motion., bilateral aka Neuro: Awake and alert, GCS 15, oriented to person, place, time, and situation. Cranial nerves II-XII grossly intact. Motor strength 5/5 in all extremities. Sensory grossly intact. Cerebellar exam normal. Normal gait. Psych: Awake, alert, with orientation to person, place and time. Behavior, mood, and affect are within normal limits. 11:54 ECG was reviewed by the Attending Physician. 11:54 Musculoskeletal/extremity: Circulation is intact in all extremities. Pulses: Compartment Syndrome exam of affected extremity: is normal. DVT Exam: No signs of deep vein thrombosis. no pain, no swelling, no tenderness, negative Homans' sign noted on exam, no appreciated bluish discoloration, no erythema, no increased warmth, Vital Signs: 09:02 BP 151 / 95; Pulse 84; Resp 16; Pulse Ox 100% on R/A; Weight 108.86 kg; Height 6 ft. 0 iw in. ; 12:00 BP 145 / 89; Pulse 79; Resp 16; Pulse Ox 98% on R/A; iw 09:02 Body Mass Index 32.55 (108.86 kg, 182.88 cm) iw NIH Stroke Scale Scores: 11:54 NIHSS Score: 0 srini MDM: 08:43 Medical Screening Exam initiated srini 11:56 Differential Diagnosis altered mental status, sepsis, flu. Data reviewed: vital signs, [facility] nurses notes, lab test result(s), EKG, radiologic studies, plain films. Consideration of Admission/Observation Escalation of care including admission/observation considered. I considered the following discharge prescriptions or medication management in the emergency department Medications were administered in the Emergency Department. See MAR. Independent interpretation of the following test(s) in the Emergency Department EKG: See my EKG interpretation above. Test considered but Not performed: Ultrasound NO 2 D ECHO. Historians other than the Patient: PT WELL INFORMED. Care significantly affected by the following chronic conditions: Diabetes. Counseling: I had a detailed discussion with the patient and/or guardian regarding the historical points, exam findings, and any diagnostic results supporting the discharge/admit diagnosis, lab results, radiology results, the need for outpatient follow up, for definitive care, a family practitioner. 06/27 08:44 Order name: CBC with Diff; Complete Time: 11: [facility] 06/27 08:44 Order name: CMP; Complete Time: 11:[address] [facility] 06/27 08:44 Order name: Troponin High Sensitivity; Complete Time: 11: [facility] 06/27 08:44 Order name: COVID-19 Ag + Flu A+B Ag; Complete Time: 11: [facility] 06/27 08:44 Order name: Chest Pa And Lat (2 Views) XRAY; Complete Time: 11:[address] [facility] 06/27 11:31 Order name: EKG; Complete Time: 11: [facility] 06/27 11:31 Order name: EKG - Nurse/Tech; Complete Time: 11:39 srini EC:54 Rate is 35 beats/min. Rhythm is regular. QRS [place] is Normal. [place] interval is normal. QRS srini interval is normal. QT interval is normal. No Q waves. T waves are Normal. No ST changes noted. Clinical impression: Normal ECG. Interpreted by me. Reviewed by me. Administered Medications: 10:32 Drug: NS 0.9% IV 1000 ml IV at 1000 ml once; to be given as a bolus over 60 minutes iw Route: IV; Rate: 1000 ml; Site: right antecubital; 12:05 Follow up: IV Status: Completed infusion; IV Intake: 1000ml rg5 Disposition Summary: 06/27/25 11:59 Discharge Ordered Notes: Location: Home srini Problem: new srini Symptoms: have improved srini Condition: Stable srini Diagnosis - Weakness srini - Other malaise and fatigue srini - Insomnia srini - Type 2 diabetes mellitus with hyperglycemia srini Followup: srini - With: Private Physician - When: 2 - 3 days - Reason: Recheck today's complaints, Continuance of care, Re-evaluation by your physician Followup: srini - With: Galen Espinoza DO - When: 2 - 3 days - Reason: Recheck today's complaints, Re-evaluation by your physician Discharge Instructions: - Discharge Summary Sheet srini - Insomnia srini - Weakness srini - Fatigue srini - Diabetes Mellitus and Exercise srini - Diabetes Mellitus and Nutrition, Adult srini - Weakness, [id number] srini - Hyperglycemia, [id number] srini - Aspirin and Your Heart srini - Deconditioning srini Forms: - Medication Reconciliation Form srini - Antibiotic Education srini - Prescription Opioid Use srini - Patient Portal Instructions srini - Leadership Thank You Letter srini - Work release form [email or web address] NIH Stroke Scale - NIH Stroke Score Date: 06/27/2025 Time: 11:54 Total Score = 0 10. Dysarthria (speech clarity - read or repeat words) - 0(Normal) 11. Extinction and Inattention (visual/tactile/auditory/spatial/personal) - 0(No abnormality) 1a. Level of Consciousness (LOC) - 0(Alert) 1b. Level of Consciousness (LOC) (Month \T\ Age) - 0(Both) 1c. LOC Commands (Open \T\ Closes Eyes/Cyber Forensic Specialist) - 0(Both) 2. Best Gaze (Lateral Gaze Paresis) - 0(Normal) 3. Visual Field Loss - 0(No visual loss) 4. Facial Palsy - 0(Normal) 5a. Left Arm: Motor (10-second hold) - 0(No drift) 5b. Right Arm: Motor (10-second hold) - 0(No drift) 6a. Left Leg: Motor (5-second hold - always test supine) - 0(No drift) 6b. Right Leg: Motor (5-second hold - always test supine) - 0(No drift) 7. Limb Ataxia (finger/nose \T\ heel/[place] - test with eyes open) - 0(Absent) 8. Sensory Loss (pinprick arms/legs/face) - 0(Normal) 9. Best Language: Aphasia (description/naming/reading) - 0(No aphasia) Initials: srini Signatures: Dispatcher [employer] EDMS Adonay Child MD MD cha Williams, Irene RN RN iw Fernando Prieto RN rg5 Corrections: (The following items were deleted from the chart) 08:44 08:44 CBC+H.LAB.BRZ ordered. EDMS EDMS 08:44 08:44 COMPREHENSIVE METABOLIC PANEL+C.LAB.BRZ ordered. EDMS EDMS 08:44 08:44 Troponin High Sensitivity+C.LAB.BRZ ordered. EDMS EDMS 08:44 08:44 UA Rfx Carlos Cult if indicated+U.LAB.BRZ ordered. EDMS EDMS 08:44 08:44 COVID-19 Ag + Flu A+B Ag+I.LAB.BRZ ordered. EDMS EDMS 08:44 08:44 Chest Pa And Lat (2 Views)+RAD.RAD.BRZ ordered. EDMS EDMS
[2025-06-27 12:15] VITALS: BP 145/89; O2SAT 98
== END 2025-06-27 12:09 | disposition home or self-care (01) ==
LOC: ER 08:35
DX: E11.65 Type 2 diabetes mellitus with hyperglycemia (principal); G47.00 Insomnia, unspecified; R53.81 Other malaise; R53.83 Other fatigue; Z72.0 Tobacco use; Z11.52 Encounter for screening for COVID-19
CPT/HCPCS: 96361; 93005; 85025; 36415; 84484; 80053; 71046; 96360; 99284; 87428; J7030